=== PATIENT | female | born 1980 | race Hispanic/Latino ===

== ENCOUNTER → 2018-04-27 | Outpatient (CLI) | payer OTHER ==
--- NOTE | 2018-04-27 09:48 | Diagnostic Imaging Report ---
Left knee MRI without contrast. History: Knee pain. Decreased range of motion. Meniscus tear. Trauma. Comparison: None. Technique: Multiplanar multi-sequence MRI of the knee without contrast. Findings: Medial compartment: There is an obliquely oriented undersurface tear at the posterior horn of the medial meniscus best seen on sagittal series 3 image 26. The medial compartmental articular cartilage surfaces are thinned with regions of fraying and fissuring. There is a nondisplaced subchondral fracture at the posterior medial tibial plateau with underlying bone marrow edema. This is best seen on sagittal series 3 image 27. There is a mild sprain of the medial collateral ligament. Lateral compartment: No meniscal tear or cartilage abnormality. The LCL complex is normal. There is a bone contusion with bone marrow edema at the anterior lateral femoral condyle and posterior lateral tibial plateau Intercondylar notch: There is a full-thickness midsubstance anterior cruciate ligament tear best seen on sagittal series 4 was 21. A stump of tissue is seen at the tibial insertion site. The posterior cruciate ligament is intact. Patellofemoral compartment: No chondromalacia or patellar dislocation. Extensor mechanism: The quadriceps and patellar tendons are normal. Other findings: There is a joint effusion and synovitis. There is no cortical fracture, subluxation or avascular necrosis. IMPRESSION: Full-thickness midsubstance anterior cruciate ligament tear. Oblique undersurface tear at the posterior horn of the medial meniscus. Mild sprain of the medial collateral ligament. Subchondral microtrabecular fracture at the posterior medial tibial plateau with bone marrow edema. Bone contusions with bone marrow edema at the anterior lateral femoral condyle and posterior lateral tibial plateau. Signed by: Dr. Deep oMise M.D. on 04/27/2018 9:44 AM
== END ==
LOC: MRI 07:27
PROVIDERS: ATTEND Specialist
DX: S83.222A Peripheral tear of medial meniscus, current injury, left knee, initial encounter (principal)

== ENCOUNTER 2021-12-25 11:52 | Emergency (ER) | payer SELFPAY ==
[~2021-12-25] VITALS: Ht 149.9 cm; Wt 92.5 kg
[2021-12-25] MEDS ORDERED: KETOROLAC TROMETHAMINE 30 MG/ML VIAL IV STA (11:57)
[2021-12-25] MEDS ORDERED: ONDANSETRON HCL INJ 2MG/ML 2ML 2 MG/ML VIAL IV STA (11:57)
[2021-12-25] MEDS ORDERED: LIDOCAINE VISC 2% SOLN 15 ML UDC PO ONE (12:00)
[2021-12-25 12:11] LABS: BASOPHILS % 0.4 % (0.0-1.0); EOSINOPHILS # (AUTO) 0.1 (0.0-0.4); EOSINOPHILS % 1.6 % (0.0-6.0); HEMATOCRIT 42.8 % (34.2-44.1); HEMOGLOBIN 13.6 g/dL (12.0-16.0); LYMPHOCYTES # (AUTO) 1.5 (1.0-3.2); LYMPHOCYTES % 18.8 % (18.0-39.1); MEAN CORPUSCULAR HEMOGLOBIN 27.8 pg (28-32); MEAN CORPUSCULAR HGB CONC 31.8 g/dL (31-35); MEAN CORPUSCULAR VOLUME 87.3 fL (81-99); MONOCYTES # (AUTO) 0.4 (0.2-0.8); MONOCYTES % 5.4 % (4.4-11.3); NEUTROPHILS # (AUTO) 5.8 (2.1-6.9); NEUTROPHILS % 73.3 % (38.7-80.0); PLATELET COUNT 359 x10e3/uL (140-360); RED CELL DISTRIBUTION WIDTH 12.8 % (11.7-14.4)
[2021-12-25] MEDS ORDERED: SODIUM CHLORIDE 0.9% 1000ML 1,000 ML IV SCH (12:15)
[2021-12-25] MEDS ORDERED: SODIUM CHLORIDE 0.9% 1000ML 1,000 ML ONE (12:28)
[2021-12-25 12:31] LABS: LIPASE 34 U/L (8-78)
[2021-12-25 12:33] LABS: ALBUMIN 3.6 g/dL (3.5-5.0); ANION GAP 14.7 mmol/L (8-16); CALCIUM 8.3 mg/dL (8.4-10.2); CREATININE, SERUM 0.75 mg/dL (0.57-1.11); POTASSIUM 3.7 mmol/L (3.5-5.1)
[2021-12-25] MEDS ORDERED: PEPCID AC10 MG PO (13:53)
[2021-12-25] MEDS ORDERED: DICYCLOMINE HCL10 MG PO (13:55)
[2021-12-25] MEDS ORDERED: MYLANTA GAS MIN42 MG PO (13:57)
== END 2021-12-25 15:10 | disposition home or self-care (01) ==
LOC: ER 11:56
DX: K30 Functional dyspepsia (principal); K21.9 Gastro-esophageal reflux disease without esophagitis; K52.9 Noninfective gastroenteritis and colitis, unspecified
CPT/HCPCS: 36415; 76705; 80053; 83690; 83735; 84702; 85025; 93005; 99284; J1885; J2405; J7030